=== PATIENT | male | born 1975 | race Caucasian/White ===

== ENCOUNTER 2022-11-06 15:14 | Outpatient (CLI) | payer OTHER, SELFPAY | END 2022-11-06 15:15 | disposition home or self-care (01) | PROVIDERS: PCP Family Medicine; Visit Provider Family Medicine | DX: Z00.00 Encounter for general adult medical examination without abnormal findings (principal); K92.1 Melena; Z13.6 Encounter for screening for cardiovascular disorders | CPT/HCPCS: 80053; 80061 ==

== ENCOUNTER 2022-12-29 07:59 | Outpatient (CLI) | payer OTHER, SELFPAY ==
--- NOTE | 2022-12-29 09:48 | W.ANESCHARGE ---
Anesthesia Charges Start Date/Time Anesthesia Start Date: 12/29/22 Anesthesia Start Time: 09:05 Stop Date/Time Anesthesia Stop Date: 12/29/22 Anesthesia Stop Time: 10:05
--- NOTE | 2022-12-29 10:03 | W.ANESCHARGE ---
Anesthesia Charges Start Date/Time Anesthesia Start Date: 12/29/22 Anesthesia Start Time: 09:05 Stop Date/Time Anesthesia Stop Date: 12/29/22 Anesthesia Stop Time: 10:05
== END 2022-12-29 08:00 | disposition home or self-care (01) ==
LOC: OP CLINIC 07:59
PROVIDERS: PCP Family Medicine; Visit Provider Surgery
DX: Z12.11 Encounter for screening for malignant neoplasm of colon (principal); K63.5 Polyp of colon; K64.4 Residual hemorrhoidal skin tags; Z83.719 Family history of colon polyps, unspecified
CPT/HCPCS: 00811; 45381; 45385; 88305; J2704

== ENCOUNTER 2023-09-28 07:54 | Outpatient (CLI) | payer OTHER, SELFPAY ==
--- NOTE | 2023-09-28 09:10 | W.ANESCHARGE ---
Anesthesia Charges Start Date/Time Anesthesia Start Date: 09/28/23 Anesthesia Start Time: 08:24 Stop Date/Time Anesthesia Stop Date: 09/28/23 Anesthesia Stop Time: 09:08
--- NOTE | 2023-09-28 09:19 | W.ANESCHARGE ---
Anesthesia Charges Start Date/Time Anesthesia Start Date: 09/28/23 Anesthesia Start Time: 08:24 Stop Date/Time Anesthesia Stop Date: 09/28/23 Anesthesia Stop Time: 09:08
== END 2023-09-28 07:55 | disposition home or self-care (01) ==
LOC: OP CLINIC 07:55
PROVIDERS: PCP Family Medicine; Visit Provider Surgery
DX: Z86.010 Personal history of colon polyps (principal); K63.5 Polyp of colon; Z09 Encounter for follow-up examination after completed treatment for conditions other than malignant neoplasm
CPT/HCPCS: 00811; 45385; 88305; J2704

== ENCOUNTER 2024-05-27 08:49 | Outpatient (CLI) | payer OTHER, SELFPAY | END 2024-05-27 08:50 | disposition home or self-care (01) | LOC: NFLDREF 05-31 17:10 | PROVIDERS: PCP Family Medicine; Referring Provider Family Medicine; Visit Provider Family Medicine | DX: Z13.228 Encounter for screening for other metabolic disorders (principal); Z13.6 Encounter for screening for cardiovascular disorders; Z12.5 Encounter for screening for malignant neoplasm of prostate | CPT/HCPCS: 80053; 80061; G0103 ==